=== PATIENT | female | born 1960 | race Caucasian/White ===

== ENCOUNTER 2018-08-15 03:46 | Emergency (ER) | payer MEDICAID ==
[~2018-08-15] VITALS: Ht 177.8 cm; Wt 108.9 kg
[~2018-08-15 03:46] MED LIST: ACETAMINOPHEN-1 EAC1 PO; AUGMENTIN 875875 MG PO; CRESTOR10 MG; HYDROCODONE-AP1 EAC6 PO; IBUPROFEN 800800 M1 PO; KLONOPIN1 MG; LIDOCAINE VISC100 M1 SWISH&SPIT; LOSARTAN POTAS100 MG; MED FOR RESTLESS LEG; OXYBUTYNIN 5 MG5 M2 PO; PENICILLIN V P500 MG PO; SINGULAIR 10 MG10 M1; ZANTAC 150MG T150 MG; [UNRECOGNIZED DRUG - OTHER]
[2018-08-15] MEDS ORDERED: VESICARE10 M1 PO (03:59)
[2018-08-15] MEDS ORDERED: NORCO 10-325 T1 EACH PO (04:00)
[2018-08-15] MEDS ORDERED: PROAIR HFA8.5 GM PO (04:00)
[2018-08-15] MEDS ORDERED: GABAPENTIN 100100 MG PO (04:12)
[2018-08-15 04:27] VITALS: BP 158/94
== END 2018-08-15 04:31 | disposition home or self-care (01) ==
LOC: M.ERS 03:46
DX: M54.12 Radiculopathy, cervical region (principal); I10 Essential (primary) hypertension; G43.909 Migraine, unspecified, not intractable, without status migrainosus; F41.9 Anxiety disorder, unspecified; J45.909 Unspecified asthma, uncomplicated; G89.29 Other chronic pain; F17.210 Nicotine dependence, cigarettes, uncomplicated; Z90.710 Acquired absence of both cervix and uterus; Z88.8 Allergy status to other drugs, medicaments and biological substances

== ENCOUNTER 2019-04-23 19:44 | Emergency (ER) | payer MEDICAID ==
[~2019-04-23] VITALS: Ht 180.3 cm; Wt 104.3 kg
[~2019-04-23 19:44] MED LIST changes: +GABAPENTIN 100100 MG PO; +NORCO 10-325 T1 EACH PO; +PROAIR HFA8.5 GM PO; +VESICARE10 M1 PO
[2019-04-23] MEDS ORDERED: NORCO 5-325 TA1 EAC1 PO (20:50)
[2019-04-23 21:56] VITALS: BP 134/87
== END 2019-04-23 21:57 | disposition home or self-care (01) ==
LOC: M.ERS 19:44
DX: S93.491A Sprain of other ligament of right ankle, initial encounter (principal); S60.211A Contusion of right wrist, initial encounter; M25.561 Pain in right knee; F41.9 Anxiety disorder, unspecified; J45.909 Unspecified asthma, uncomplicated; I10 Essential (primary) hypertension; G89.29 Other chronic pain; G43.909 Migraine, unspecified, not intractable, without status migrainosus; Z90.710 Acquired absence of both cervix and uterus; W01.0XXA Fall on same level from slipping, tripping and stumbling without subsequent striking against object, initial encounter; Y93.89 Activity, other specified; Y92.89 Other specified places as the place of occurrence of the external cause; Y99.8 Other external cause status

== ENCOUNTER 2020-05-29 13:41 | Emergency (ER) | payer MEDICAID ==
[~2020-05-29] VITALS: Ht 175.3 cm; Wt 104.3 kg
[~2020-05-29 13:41] MED LIST changes: +NORCO 5-325 TA1 EAC1 PO
[2020-05-29] MEDS ORDERED: PEPCID40 MG PO (14:08)
[2020-05-29] MEDS ORDERED: VESICARE 5 MG TA5 M1 PO (14:08)
[2020-05-29] MEDS ORDERED: ALLEGRA ALLERG180 MG PO (14:08)
[2020-05-29] MEDS ORDERED: OXYBUTYNIN 5 MG5 M2 PO (14:08)
[2020-05-29] MEDS ORDERED: ATENOLOL 25 MG25 M1 PO (14:09)
[2020-05-29] MEDS ORDERED: HYDROCHLOROTHIA25 M2 PO (14:09)
[2020-05-29] MEDS ORDERED: NORCO 10-325 T1 EACH PO (14:09)
[2020-05-29] MEDS ORDERED: KLONOPIN1 MG PO (14:10)
[2020-05-29] MEDS ORDERED: GENTLE LAXATIVE5 M1 PO (14:10)
[2020-05-29] MEDS ORDERED: LIPITOR 20 MG T20 M1 PO (14:10)
[2020-05-29 15:15] LABS: URINE BILIRUBIN NEGATIVE (Negative); URINE BLOOD NEGATIVE (Negative); URINE CLARITY CLOUDY; URINE COLOR YELLOW; URINE GLUCOSE-RANDOM NEGATIVE (Negative); URINE KETONES NEGATIVE (Negative); URINE LEUKOCYTES-REFLEX NEGATIVE (Negative); URINE NITRITE-REFLEX NEGATIVE (Negative); URINE PROTEIN NEGATIVE (Negative); URINE SPECIFIC GRAVITY 1.025 (1.005-1.030); URINE UROBILINOGEN 0.2 E.U./dl (0.2-1.0)
[2020-05-29 15:21] LABS: BACTERIA-REFLEX 1-9 Few /HPF (None Seen); CASTS None Seen /LPF (None Seen); CRYSTALS None Seen /LPF (None Seen); SQUAMOUS >10 Many /LPF (0-3); URINE RBC 0-2 Rare /HPF (0-2); URINE WBC-REFLEX 0-5 Rare /HPF (0-5)
[2020-05-29] MEDS ORDERED: MEDROLDOSEPACK PO (15:27)
[2020-05-29] MEDS ORDERED: NORCO 5-325 TA1 EAC2 PO (15:27)
[2020-05-29 15:49] VITALS: BP 127/77
== END 2020-05-29 15:50 | disposition home or self-care (01) ==
LOC: M.ERS 13:41
PROVIDERS: Physician Assistant
DX: M54.32 Sciatica, left side (principal); I10 Essential (primary) hypertension; G43.909 Migraine, unspecified, not intractable, without status migrainosus; G89.29 Other chronic pain; J45.909 Unspecified asthma, uncomplicated; F17.210 Nicotine dependence, cigarettes, uncomplicated; Z88.8 Allergy status to other drugs, medicaments and biological substances; Z90.710 Acquired absence of both cervix and uterus

== ENCOUNTER 2020-10-20 11:07 | Emergency (ER) | payer MEDICAID ==
[~2020-10-20] VITALS: Ht 177.8 cm; Wt 108.9 kg
[~2020-10-20 11:07] MED LIST changes: +ALLEGRA ALLERG180 MG PO; +ATENOLOL 25 MG25 M1 PO; +GENTLE LAXATIVE5 M1 PO; +HYDROCHLOROTHIA25 M2 PO; +KLONOPIN1 MG PO; +LIPITOR 20 MG T20 M1 PO; +MEDROLDOSEPACK PO; +NORCO 5-325 TA1 EAC2 PO; +PEPCID40 MG PO; +VESICARE 5 MG TA5 M1 PO
[2020-10-20] MEDS ORDERED: MINIVELLE1 EAC1 PO (11:21)
[2020-10-20] MEDS ORDERED: METHOCARBAMOL500 M2 PO (11:21)
[2020-10-20] MEDS ORDERED: KENALOG100 GM TOP (11:23)
[2020-10-20] MEDS ORDERED: WELLBUTRIN 100100 MG PO (11:23)
[2020-10-20] MEDS ORDERED: NORCO 5-325 TA1 EAC2 PO (13:12)
[2020-10-20 13:23] VITALS: BP 121/76
== END 2020-10-20 13:23 | disposition home or self-care (01) ==
LOC: M.ERS 11:07
DX: S62.112A Displaced fracture of triquetrum [cuneiform] bone, left wrist, initial encounter for closed fracture (principal); M79.672 Pain in left foot; I10 Essential (primary) hypertension; G43.909 Migraine, unspecified, not intractable, without status migrainosus; J45.909 Unspecified asthma, uncomplicated; G89.29 Other chronic pain; F17.210 Nicotine dependence, cigarettes, uncomplicated; Z90.710 Acquired absence of both cervix and uterus; W10.8XXA Fall (on) (from) other stairs and steps, initial encounter; Y93.89 Activity, other specified; Y92.89 Other specified places as the place of occurrence of the external cause; Y99.8 Other external cause status